=== PATIENT | male | born 1990 | race Caucasian/White ===

== ENCOUNTER 2024-02-03 20:56 | Emergency (ER) | payer OTHER, SELFPAY ==
[2024-02-03 20:57] VITALS: BP 141/85; PULSE 89; RESP 16; TEMP 36.6; O2SAT 97; BMI 27.5
--- NOTE | 2024-02-03 21:09 | EX.ED.DYSGE1 ---
HPI <GAB Sousa - Last Filed: 02/03/24 21:50> History of Present Illness Chief Complaint: Lower Extremity Injury Narrative Narrative: 33-year-old male was jumping over boxes today to catch his 2-year-old and his right pinky toe got caught. He is not sure what ankle it pentad but it injured the toenail and it was bleeding. He taped it next to the next toe and has been able to ambulate. His significant other encouraged him to come in for evaluation. [facility] <GAB Sousa - Last Filed: 02/03/24 21:50> [facility] Medical History (Updated 02/03/24 @ 21:24 by GAB Sousa) History of behavioral and mental health problems Home Medications multivitamin (Daily Multi-Vitamin tablet) 1 tab PO DAILY 02/03/24 [History Last Taken Unknown] Allergy/AdvReac Type Severity Reaction Status Date / Time No Known Allergies Allergy Verified 02/03/24 20:59 Social History Smoking Status: Former smoker ROS <GAB Sousa - Last Filed: 02/03/24 21:50> ROS ED ROS Narrative Neuro: Negative for motor/sensory dysfunction. Musc: Positive for right fifth toe pain, trauma. EXAM <GAB Sousa Last Filed: 02/03/24 21:50> Physical Exam Narrative Exam Narrative: CONST: Patient sitting in no acute distress. EYES: Normal inspection. SKIN: Color normal, no rash, warm, dry, intact. EXTREMITIES: Mild swelling and tenderness of right fifth toe, small amount of dried blood around the distal aspect of the nail. The toenail is firmly adhered and there is no subungual hematoma. No tenderness of the ankle or foot. 2+ DP pulse. NEURO: Alert and answering questions appropriately. PSYCH: Normal affect. Const Vital Signs: 02/03/24 20:57 02/03/24 22:12 Temperature 97.8 F 97.1 F L Temperature Source Temporal Pulse Rate 89 93 Respiratory Rate 16 18 Blood Pressure 141/85 H 140/95 H Blood Pressure Mean 103 110 Pulse Ox 97 94 Oxygen Delivery Method Room Air <Dr. Robbie Mosley DO - Last Filed: 02/03/24 22:20> Physical Exam Const Vital Signs: 02/03/24 20:57 02/03/24 22:12 Temperature 97.8 F 97.1 F L Temperature Source Temporal Pulse Rate 89 93 Respiratory Rate 16 18 Blood Pressure 141/85 H 140/95 H Blood Pressure Mean 103 110 Pulse Ox 97 94 Oxygen Delivery Method Room Air [facility] <GAB Sousa - Last Filed: 02/03/24 21:50> [facility] Narrative Medical decision making narrative: Patient injured his right pinky toe and had some bleeding from the toenail. Mild swelling and tenderness of the fifth digit. There is no subungual hematoma or nail avulsion. Extremity is neurovascularly intact. X-ray shows no fracture or dislocation. I discussed symptomatic management and he was discharged in stable condition. Radiography Diagnostic Testing: Clinical Impression(s) from Imaging Studies Toe X-Ray 02/03/24 21:19 IMPRESSION: Negative right toe x-rays. Electronically Signed: Jalen Clark MD at 21:45 EDT Reading Location ID and State: [facility] / [place] , Service support , Attending interpretation of right foot shows no fracture or dislocation <Dr. Robbie Mosley DO - Last Filed: 02/03/24 22:20> [facility] Narrative Medical decision making narrative: Patient injured his right pinky toe and had some bleeding from the toenail. Mild swelling and tenderness of the fifth digit. There is no subungual hematoma or nail avulsion. Extremity is neurovascularly intact. X-ray shows no fracture or dislocation. I discussed symptomatic management and he was discharged in stable condition. I have personally performed a face to face assessment of the patient and have reviewed the CHANTE Note. I performed a substantive portion of the visit including all aspects of the following. My brooke findings include: History is 33-year-old male injured right pinky toe earlier today while jumping over some boxes. He notes some blood around the nail. He notes swelling has improved throughout the day. He still notes pain with movement and touch. Exam is blood around the nail without obvious large subungual hematoma. There is no obvious deformity. Mild swelling and ecchymosis noted Medical Decison Making might have interpretation of the plain films is no acute fracture of the right little toe. Patient will use supportive care and taping. Follow-up as needed return if worsening or concerns History & Record Review Discussion w/independent historian: Patient Radiography Diagnostic Testing: Clinical Impression(s) from Imaging Studies Toe X-Ray 02/03/24 21:19 IMPRESSION: Negative right toe x-rays. Electronically Signed: Jalen Clark MD at 21:45 EDT Reading Location ID and State: [address] [place] [address] , Service support , Discharge Plan Triage Chief Complaint: Lower Extremity Injury ED Midlevel Provider: Belinda Chong ED Provider: Robbie Mosley Dx/Rx/DC Orders Clinical Impression: Injury of toenail of right foot, Contusion of fifth toe of right foot Prescriptions: No Action multivitamin [Daily Multi-Vitamin] Tablet 1 tab PO DAILY Primary Care Provider: Care Physician,Luz Maria Primary Referrals: NOT,DEFINED [Non-Staff] - Activity Restrictions/Additional Instructions: Ice and take Tylenol as needed Disposition Disposition: Home, Self Care Discharge Date/Time: 02/03/24 22:12
--- NOTE | 2024-02-03 21:19 | RAD_ITS ---
EXAM: XR RIGHT TOES, 2 OR MORE VIEWS CLINICAL INDICATION: right pink toe pain TECHNIQUE: Frontal, lateral and oblique views of the toes of the right foot. COMPARISON: No relevant prior studies available. FINDINGS: BONES/JOINTS: Unremarkable. No acute fracture. No dislocation. SOFT TISSUES: Unremarkable. No radiopaque foreign body. RAD/Toe(s) Min 2 Views IMPRESSION: Negative right toe x-rays. Electronically Signed: Jalen Clark MD at 21:45 EDT ,
[2024-02-03 22:12] VITALS: BP 140/95; PULSE 93; RESP 18; TEMP 36.2; O2SAT 94
== END 2024-02-03 22:12 | disposition home or self-care (01) ==
PROVIDERS: Emergency Provider Emergency Medicine; Visit Provider Emergency Medicine
DX: S90.221A Contusion of right lesser toe(s) with damage to nail, initial encounter (principal); W22.09XA Striking against other stationary object, initial encounter; X58.XXXA Exposure to other specified factors, initial encounter; Y99.8 Other external cause status; Z87.891 Personal history of nicotine dependence
CPT/HCPCS: 73660; 99282